=== PATIENT | female | born 1960 | race Caucasian/White ===

== ENCOUNTER 2022-01-01 08:20 | Day surgery (SDC) | payer OTHER ==
[~2022-01-01] VITALS: Ht 157.5 cm; Wt 58.5 kg
[2022-01-01] MEDS ORDERED: fentaNYL citrate 0.05 MG/ML VIAL ONE (10:47)
[2022-01-01] MEDS ORDERED: MIDAZOLAM 2 MG/2 ML VIAL ONE (10:57)
[2022-01-01] MEDS: MIDAZOLAM 2 MG/2 ML VIAL IVP ONE (10:58)
[2022-01-01] MEDS: fentaNYL citrate 0.05 MG/ML VIAL IVP ONE (10:59)
[2022-01-01] MEDS: LIDOCAINE 2% 100 MG/5 ML UJET TP ONE (11:07)
== END 2022-01-01 11:55 | disposition home or self-care (01) ==
LOC: MDS 08:20 → MMU 08:20 → MDS 11:55
PROVIDERS: ATTEND Internal Medicine Gastroenterology
DX: Z12.11 Encounter for screening for malignant neoplasm of colon (principal); K63.5 Polyp of colon; I10 Essential (primary) hypertension; E78.00 Pure hypercholesterolemia, unspecified; Z79.899 Other long term (current) drug therapy; Z20.822 Contact with and (suspected) exposure to COVID-19
CPT/HCPCS: 45385; 87426; J2250; J3010